=== PATIENT | female | born 1985 ===

== ENCOUNTER 2017-05-19 01:11 | Observation (INO) | payer SELFPAY ==
[2017-05-19 01:13] VITALS: BMI 22.6
--- NOTE | 2017-05-19 01:17 | ED PDOC ---
HPI: Psych/Substance Abuse Time Seen by Provider: 05/19/17 01:12 Chief Complaint (Provider): ETOH History Per: Patient, EMS Additional Complaint(s): 31 yo female presents to ED by EMS for evaluation of ETOH intoxication. EMS report that Pt was found wandering streets of [place] no complaints. Past Medical History Reviewed: Nursing Documentation, Vital Signs, Unable To Obtain - Surgical History Surgical History: No Surg Hx - Family History Family History: States: Unknown Family Hx - Social History Alcohol: Social - Immunization History Hx Tetanus Toxoid Vaccination: No Hx Influenza Vaccination: No Hx Pneumococcal Vaccination: No - Home Medications Home Medications: Ambulatory Orders Medication Instructions Recorded DiphenhydrAMINE [Benadryl] 25 mg PO Q4H #30 cap 12/07/14 Famotidine [Pepcid] 20 mg PO BID #20 tab 12/14/14 Prednisone 10 mg PO DAILY #32 tab 12/14/14 hydrOXYzine HCl [Atarax] 25 mg PO Q6H #30 tab 12/14/14 - Allergies Allergies/Adverse Reactions: Allergies Allergy/AdvReac Type Severity Reaction Status Date / Time No Known Allergies Allergy Verified 12/14/14 12:30 Review of Systems ROS Statement: Except As Marked, All Systems Reviewed And Found Negative Review Of Systems: ROS cannot be obtained secondary to pt's inabilty to answer questions. Physical Exam - Reviewed Nursing Documentation Reviewed: Yes Vital Signs Reviewed: Yes - Physical Exam Appears: Positive for: Well, Non-toxic, No Acute Distress Head Exam: Positive for: ATRAUMATIC, NORMAL INSPECTION, NORMOCEPHALIC Skin: Positive for: Normal Color, Warm, DRY Eye Exam: Positive for: EOMI, Normal appearance, PERRL ENT: Positive for: Normal ENT Inspection Neck: Positive for: Normal, Painless ROM Cardiovascular/Chest: Positive for: Regular Rate, Rhythm Respiratory: Positive for: CNT, Normal Breath Sounds Gastrointestinal/Abdominal: Positive for: Normal Exam, Bowel Sounds, Soft Back: Positive for: Normal Inspection Extremity: Positive for: Normal ROM Neurologic/Psych: Positive for: Alert - Laboratory Results Result Diagrams: 05/19/17 03:45 Medical Decision Making Medical Decision Making: Restraints placed for protection of Pt Haldol and Ativan administered to relieve Pt of her agitation Pt on 1:1 Pt continues to scream and try and get out of restraints. Given 25 mg Benadryl IM Labs resulted and reviewed ETOH 305 Pt asleep 0430, restraints removed. Case endorsed to ED MD, Dr. Zepeda, at 0600 pending clinical sobriety Disposition - Clinical Impression Clinical Impression: Alcohol use - Patient ED Disposition Is Patient to be Admitted: Transfer of Care (Dr. Zepeda) - Disposition Disposition: Transfer of Care (Dr. Zepeda) Disposition Time: 06:00 Condition: STABLE - POA Present On Arrival: None
[2017-05-19 01:20] VITALS: TEMP 98
[2017-05-19] MEDS ORDERED: DiphenhydrAMINE 50 mg/ml Inj IVP STA (02:09)
[2017-05-19] MEDS ORDERED: DiphenhydrAMINE 50 mg/ml Inj IM STA (02:22)
[2017-05-19 03:49] LABS: BASO # 0.1 K/uL (0.0-0.2); BASO % 1.3 % (0.0-2.0); EOS # 0.1 K/uL (0.0-0.7); EOS % 2.9 % (0.0-4.0); HEMOGLOBIN 12.4 g/dL (12.0-16.0); LYMPH # 1.5 K/uL (1.0-4.3); LYMPH % 31.3 % (20.0-40.0); MEAN CELL VOLUME 88.5 fl (81.0-99.0); MEAN CORPUSCULAR HGB CONC 33.8 g/dL (33.0-37.0); MEAN PLATELET VOLUME 8.8 fl (7.2-11.7); MONO # 0.2 K/uL (0.0-0.8); MONO % 5.1 % (0.0-10.0); NEUT # 2.8 K/uL (1.8-7.0); NEUT % 59.4 % (50.0-75.0); NRBC % 0.1 % (0.0-0.0); RBC 4.13 Mil/uL (3.80-5.20); RED CELL DISTRIBUTION WIDTH 13.6 % (11.5-14.5); WHITE BLOOD COUNT 4.7 K/uL (4.8-10.8)
[2017-05-19 05:10] LABS: ALB/GLOB RATIO 1.5 (1.0-2.1); ALBUMIN 4.1 g/dL (3.5-5.0); ALT/SGPT 29 U/L (9-52); AST/SGOT 27 U/L (14-36); BLOOD UREA NITROGEN 5 mg/dl (7-17); CALCIUM 8.6 mg/dL (8.4-10.2); GFR AFRICAN-AMERICAN > 60; GFR NON-AFRICAN AMERICAN > 60
--- NOTE | 2017-05-19 06:51 | ED PDOC ---
- Laboratory Results Result Diagrams: 05/19/17 03:45 05/19/17 03:45 - ECG O2 Sat by Pulse Oximetry: 96 Medical Decision Making Medical Decision Makin:00 Patient transferred over to me by Tracy Garcia PA-C, pending clinical sobriety. Patient is asleep in ED. 7:00 Case endorsed to ED MD, Dr. Fernandez, pending clinical sobriety Scribe Attestation: Documented by Shalonda Terry, acting as a scribe for Chucho Zepead MD. Provider Scribe Attestation: All medical record entries made by the Scribe were at my direction and personally dictated by me. I have reviewed the chart and agree that the record accurately reflects my personal performance of the history, physical exam, medical decision making, and the department course for this patient. I have also personally directed, reviewed, and agree with the discharge instructions and disposition. Disposition - Clinical Impression Clinical Impression: Alcohol use - POA Present On Arrival: None - Disposition Disposition: Transfer of Care Disposition Time: 07:00 Condition: STABLE Patient Signed Over To: Tonja Fernandez Handoff Comments: pending sobriety
--- NOTE | 2017-05-19 07:08 | ED PDOC ---
- Laboratory Results Result Diagrams: 05/19/17 03:45 05/19/17 03:45 - ECG O2 Sat by Pulse Oximetry: 96 (RA) Medical Decision Making Medical Decision Making: Receiving sign out: Patient signed out to me by Dr. Zepeda at 0700 pending clinical sobriety. Scribe Attestation: Documented by Tiffanie Vazquez acting as a scribe for Tonja Fernandez MD. Provider Attestation: All medical record entries made by the Scribe were at my direction and personally dictated by me. I have reviewed the chart and agree that the record accurately reflects my personal performance of the history, physical exam, medical decision making, and the department course for this patient. I have also personally directed, reviewed, and agree with the discharge instructions and disposition. Disposition - Clinical Impression Clinical Impression: Alcohol use - POA Present On Arrival: None - Disposition Disposition: Routine/Home Disposition Time: 07:50 Condition: STABLE Progress Note - Review of Symptoms Events since last encounter: Time: 0750 Patient awake, alert and oriented x 3 with steady gait. Stable for discharge home.
[2017-05-19 07:11] VITALS: BP 99/49; PULSE 83; RESP 14
[2017-05-19] MEDS ORDERED: Potassium Chloride 20 mEq ER Tab PO STA (07:34)
[2017-05-19 07:52] VITALS: O2SAT 96
== END 2017-05-19 08:01 | disposition home or self-care (01) ==
LOC: H.ER 01:11 → H.EROBSV 01:53
PROVIDERS: ADMIT Emergency Medicine; ATTEND Emergency Medicine
DX: F10.129 Alcohol abuse with intoxication, unspecified (principal); Y90.8 Blood alcohol level of 240 mg/100 ml or more; Z78.1 Physical restraint status
CPT/HCPCS: 80053; 84702; 85025; 96372; 99284; G0378; G0480; J1200; J1630; J2060